=== PATIENT | female | born 1975 | race African-American/Black ===

== ENCOUNTER → 2016-10-23 | Outpatient (CLI) | payer OTHER ==
[~2016-10-23] MED LIST: BEYATAB PO; CHOL100025 CHEW; Docusate Sod/Senna PO; FOLI400T PO; IBUP600 PO; LORA1CHW CHEW; MONT4CHW2 CHEW; PRENCAP10 PO
[2016-10-23 11:21] LABS: AUTOMATED NEUTROPHIL # 3.6 TH/MM3 (1.8-7.7); BASOPHIL % 0.6 % (0.0-2.0); EOSINOPHIL % 0.5 % (0.0-4.0); HEMATOCRIT 35.3 % (35.0-46.0); HEMO FLAGS DIFF FINAL; LYMPH % 27.9 % (9.0-44.0); LYMPHOCYTE # 1.7 TH/MM3 (1.0-4.8); MEAN CELL VOLUME 75.3 FL (80.0-100.0); MEAN CORPUSCULAR HEMOGLOBIN 26.6 PG (27.0-34.0); MEAN CORPUSCULAR HGB CONC 35.3 % (32.0-36.0); MONO % 11.6 % (0.0-8.0); NEUT % 59.4 % (16.0-70.0); PLATELET COUNT 334 TH/MM3 (150-450); RED BLOOD COUNT 4.68 MIL/MM3 (4.00-5.30); RED CELL DISTRIBUTION WIDTH 14.4 % (11.6-17.2); WHITE BLOOD COUNT 6.1 TH/MM3 (4.0-11.0)
[2016-10-23 12:04] LABS: ANION GAP 11 MEQ/L (5-15); BICARBONATE 26.9 MEQ/L (21.0-32.0); BLOOD UREA NITROGEN 9 MG/DL (7-18); CHLORIDE 102 MEQ/L (98-107); GLOMERULAR FILTRATION RATE 77 ML/MIN (>89); GLUCOSE,FASTING 109 MG/DL (74-99); POTASSIUM 3.7 MEQ/L (3.5-5.1); SODIUM (NA) 140 MEQ/L (136-145)
[2016-10-23 12:07] LABS: BACTERIA, URINE RARE /hpf; BLOOD, URINE SMALL (NEG); GLUCOSE,URINE NEG (NEG); KETONE, URINE NEG (NEG); MUCUS URINE FEW /lpf (OCC); NITRITE,URINE NEG (NEG); SQUAMOUS EPITHELIAL CELL URINE 5 /hpf (0-5); URINE COLOR YELLOW (YELLW/STRAW)
[2016-10-23 12:13] LABS: BHCG SCREEN QUALITATIVE LESS THAN 1 MIU/ML (0-5)
--- NOTE | 2016-10-24 15:58 | EKG ---
Date Performed: 10/23/2016 Time Performed: 11:20:11 PTAGE: 41 years EKG: Sinus rhythm NORMAL ECG NO PREVIOUS TRACING DOCTOR: Darci Echevarria Interpretating Date/Time 10/24/2016 15:56:34
== END ==
LOC: CPRE 10:33
PROVIDERS: ATTEND Obstetrics & Gynecology
DX: Z01.810 Encounter for preprocedural cardiovascular examination (principal); Z01.812 Encounter for preprocedural laboratory examination; D21.9 Benign neoplasm of connective and other soft tissue, unspecified
CPT/HCPCS: 36415; 80048; 81001; 84703; 85025; 93005

== ENCOUNTER → 2016-10-31 | Day surgery (SDC) | payer OTHER ==
[~2016-10-31] VITALS: Ht 166.4 cm; Wt 75.6 kg
[~2016-10-31] MED LIST changes: +*morphine SULFATE 8 MG/ML PERIprocedure ONLY ONE; +BUPIVACAINE/EPINEPHRINE 0.25% PF 10 ML VIAL INFIL ONE; +DEXAMETHASONE SOD PHOS 4 MG/ML VIAL ONE; +DO NOT ADM ANY ANTICOAGULANT DRUGS XX PRN; -Docusate Sod/Senna PO; +FAMOTIDINE 20 MG/2 ML VIAL ONE; -IBUP600 PO; +INSULIN HUMAN REGULAR 1,000 UNITS/10 ML VIAL SQ PRN; +KETOROLAC TROMETHAMINE 60 MG/2 ML (IM) VIAL IM ONE; +KETOROLAC TROMETHAMINE 60 MG/2 ML (IM) VIAL IM PRN; +LACTATED RINGER'S 1000 ML INJ 1,000 ML IV ONE; +LACTATED RINGER'S 1000 ML IV SCH; +METOPROLOL TARTRATE 25 MG TAB PO PRN; +MIDAZOLAM HCL 2 MG/2 ML VIAL ONE; +NEOSTIGMINE 3 MG/3 ML SYR IV ONE; +ONDANSETRON HCL 4 MG/2 ML VIAL IV PUSH ONE; +ONDANSETRON HCL 4 MG/2 ML VIAL IV PUSH PRN; -PRENCAP10 PO; +PROPOFOL 200 MG/20 ML AMP IV ONE; +SODIUM CHLORID 0.9% 500 ML IV SCH; +ceFAZolin 1,000 MG/NS 100 ML IV SCH; +ceFAZolin 2 GM PREMIX 50 ML IV SCH; +fentaNYL CITRATE 250 MCG/5 ML AMP ONE; +oxyCODONE/ACETAMINOPHEN 5 MG/325 MG TAB PO PRN
[2016-10-31 06:31] VITALS: BP 118/87; PULSE 75; RESP 18; TEMP 98.7; O2SAT 98
[2016-10-31 12:25] VITALS: BP 124/78; PULSE 66; RESP 18; TEMP 97.4; O2SAT 100
--- NOTE | 2016-11-02 09:37 | MP ---
cc: MIGUEL APARICIO DATE OF SURGERY: 10/31/2016 PREOPERATIVE DIAGNOSIS Menorrhagia. POSTOPERATIVE DIAGNOSIS Menorrhagia. PROCEDURE Examination under anesthesia, laparoscopic-assisted supracervical hysterectomy, bilateral salpingectomy, cystoscopy. SURGEON Dr. Aparicio. [employer]PER[employer] Tabitha Amor. ANESTHESIA General endotracheal anesthesia, Dr. Cortes. FLUIDS 1400 ccs crystalloid. ESTIMATED BLOOD LOSS 300 ccs. URINE OUTPUT 400 ccs clear yellow at the end of the procedure. FINDINGS Uterus was approximately 10-12 weeks in size. Ovaries appeared normal. PROCEDURE The patient was taken to the operating room where general anesthesia was found to be adequate. She was then prepped and draped in the normal sterile fashion in the dorsal lithotomy position. A Fong catheter was inserted into the urinary bladder using sterile technique. A weighted speculum was placed in the vagina. Single-tooth tenaculum was applied to the anterior lip of the cervix. The uterus was sounded to approximately 8-9 cm. The cervix was then dilated to accommodate a small V-Care uterine manipulator. A suture was placed through the anterior lip of the cervix. The tenaculum was removed. The V-Care was positioned. The balloon was inflated in the endometrial cavity. The cups were positioned. The weighted speculum was removed. The gloves were changed and attention was turned to the abdominal portion of the procedure. A 5-mm incision and trocar were placed just above the umbilicus under direct visualization. The abdomen was insufflated with approximately 3-1/2 liters of CO2 gas. A 5-mm trocar was placed in the right lower quadrant and a 10/12 mm trocar placed in the left lower quadrant. The round ligaments were transected bilaterally with the Harmonic scalpel. The bladder was dissected off the anterior surface of the uterus and cervix using the harmonic scalpel. The fallopian tubes were transected from the broad ligaments using the harmonic scalpel. The remaining broad ligaments, uterine arteries were transected with the Harmonic scalpel. The uterus was then amputated above the cervix. The fallopian tubes were removed and sent to pathology. The uterus was extracted and sent to pathology. The V-Care uterine manipulator was removed and the endocervical canal was cauterized using the harmonic scalpel. Slight bleeding was noted to the left side of the cervix and this was cauterized with the Kleppinger forceps. Hemostasis was noted from all pedicles. Christina was placed over the surgical pedicles to assure hemostasis. The suture passer was used to pass a suture through the fascia and peritoneum of the 10/12 mm left lower quadrant incision. The gas was allowed to escape. The trocars and instruments were removed. The skin incisions were closed with 4-0 Monocryl. The Fong catheter was used to instill approximately 250 ccs of saline into the bladder. The Fong catheter was removed. The cystoscopy was performed and urine was noted to be effluxing from both of the ureteral meatus and no bladder injury was noted. The cystoscope was removed. The Fong catheter was replaced. The suture was cut from the anterior lip of the cervix. The patient was awakened from anesthesia and transferred to the recovery room in stable condition. PATHOLOGY Pathology was uterus and fallopian tubes. COUNTS The sponge, lap, needle and instrument counts were correct. MD PAULETTE Chan/TRACEY /9:31 AM /8:23 AM
== END | disposition home or self-care (01) ==
LOC: HSDC 06:22
PROVIDERS: ATTEND Obstetrics & Gynecology
DX: D25.1 Intramural leiomyoma of uterus (principal); N71.1 Chronic inflammatory disease of uterus; D64.9 Anemia, unspecified; E78.00 Pure hypercholesterolemia, unspecified; Z87.440 Personal history of urinary (tract) infections
CPT/HCPCS: 00840; 58542; 86850; 86900; 86901; 88307; J0690; J1100; J1885; J2250; J2270; J2405; J2710; J3010; J7120